=== PATIENT | female | born 1955 | race Caucasian/White ===

== ENCOUNTER 2017-06-01 11:24 | Emergency (ER) | payer BC ==
[~2017-06-01] VITALS: Ht 157.5 cm; Wt 109.0 kg
[2017-06-01] MEDS ORDERED: PROAIR HFA8.5 GM IH (13:05)
[2017-06-01] MEDS ORDERED: ADVAIR 250/501 DISK IH (13:05)
[2017-06-01] MEDS ORDERED: SINGULAIR10 MG PO (13:05)
[2017-06-01] MEDS ORDERED: LIPITOR40 MG PO (13:06)
[2017-06-01] MEDS ORDERED: ZOLOFT50 MG PO (13:06)
[2017-06-01] MEDS ORDERED: GLUCOPHAGE500 MG PO (13:06)
[2017-06-01] MEDS ORDERED: HYZAAR 50-121 TABLET PO (13:06)
[2017-06-01] MEDS ORDERED: ZOFRAN ODT4 MG PO (15:41)
[2017-06-01] MEDS ORDERED: LORTAB 5-325 M1 EACH PO (15:41)
[2017-06-01 16:35] VITALS: BP 170/77
== END 2017-06-01 16:36 | disposition home or self-care (01) ==
LOC: EME 11:24 → RME 11:24
DX: S82.141A Displaced bicondylar fracture of right tibia, initial encounter for closed fracture (principal); W01.0XXA Fall on same level from slipping, tripping and stumbling without subsequent striking against object, initial encounter; Y93.01 Activity, walking, marching and hiking; Y92.480 Sidewalk as the place of occurrence of the external cause; J45.909 Unspecified asthma, uncomplicated; I10 Essential (primary) hypertension; E78.5 Hyperlipidemia, unspecified; E11.9 Type 2 diabetes mellitus without complications; Z79.84 Long term (current) use of oral hypoglycemic drugs
CPT/HCPCS: 73564; 73700; 99281; 99283